=== PATIENT | male | born 1990 | race Asian ===

== ENCOUNTER 2017-01-10 09:27 | Day surgery (SDC) | payer OTHER ==
[2017-01-09 17:22] VITALS: BMI 32.4
[~2017-01-10] VITALS: Ht 167.6 cm; Wt 89.0 kg
[2017-01-10] VITALS (12 sets, daily range): BP systolic 96–122; BP diastolic 37–68; PULSE 64–78; RESP 11–22; Ht 167.6 cm; Wt 89.0 kg
[~2017-01-10 09:27] MED LIST: CEFAZOLIN 2 GM/50 ML (PMX) 50 ML IVPB SCH; SOD CHLORIDE 0.9% 1,000 ML IV SCH
[2017-01-10] MEDS ORDERED: AMOX1TAB10 PO (10:26)
[2017-01-10] MEDS ORDERED: BUPIVACAINE 0.25% (MPF) 30 ML INJ ONE (11:16)
[2017-01-10] MEDS ORDERED: FENTAnyl 50 MCG/ML VIAL ONE (11:25)
[2017-01-10] MEDS ORDERED: MIDAZOLAM 1 MG/ML 2 ML INJ ONE (11:25)
[2017-01-10] MEDS ORDERED: PROPOFOL 20 ML ONE (11:25)
[2017-01-10] MEDS ORDERED: SUCCINYLCHOLINE CHLORIDE 100 MG/5 ML SYG IV ONE (11:25)
[2017-01-10] MEDS ORDERED: ROCURONIUM 50 MG INJ ONE (11:25)
[2017-01-10] MEDS ORDERED: BUPIVACAINE 0.25% (MPF) 30 ML INJ INJ ONE (12:11)
[2017-01-10] MEDS ORDERED: GLYCOPYRROLATE 0.4 MG INJ ONE (12:23)
[2017-01-10] MEDS ORDERED: NEOSTIGMINE 3 MG/3 ML SYRINGE ONE (12:23)
[2017-01-10] MEDS ORDERED: CEFAZOLIN 1 GM INJ ONE (12:23)
[2017-01-10] MEDS ORDERED: ONDANSETRON 4 MG INJ ONE (12:23)
[2017-01-10] MEDS ORDERED: KETOROLAC 30 MG INJ ONE (12:23)
[2017-01-10] MEDS ORDERED: METOCLOPRAMIDE 10 MG INJ ONE (12:23)
[2017-01-10] MEDS ORDERED: DEXAMETHASONE 4 MG/ML 1 ML INJ ONE (12:23)
[2017-01-10] MEDS ORDERED: ONDANSETRON 4 MG INJ IV PRN (13:00)
[2017-01-10] MEDS ORDERED: DIPHENHYDRAMINE 50 MG INJ IV PRN (13:00)
[2017-01-10] MEDS ORDERED: LABETALOL HCL 20MG INJ IV PRN (13:00)
[2017-01-10] MEDS ORDERED: OXYCODONE/ACETAMINOPHEN (5/325) TAB PO PRN ×2 (13:00)
[2017-01-10] MEDS ORDERED: HYDROmorphONE (0.2 MG/ML) 10ML SYG IV PRN ×3 (13:00)
[2017-01-10] MEDS ORDERED: EPHEDrine SULFATE 50 MG/5 ML SYG IV PRN (13:00)
[2017-01-10] MEDS ORDERED: METOCLOPRAMIDE 10 MG INJ IV PRN (13:00)
[2017-01-10] MEDS ORDERED: MEPERIDINE 25 MG INJ IV PRN (13:00)
[2017-01-10] MEDS ORDERED: FENTAnyl 50 MCG/ML VIAL IV PRN ×2 (13:00)
[2017-01-10] MEDS ORDERED: morphine (1 MG/ML) 10ML SYRINGE IV PRN ×3 (13:00)
[2017-01-10] MEDS ORDERED: HYDROCODONE/APAP (5/325) TAB PO ONE (13:00)
--- NOTE | 2017-01-10 13:00 | OPR ---
Date/Time of Note Date/Time of Note DATE: 01/10/17 TIME: 12:57 Operative Report Procedure Date: Jan 10, 2017 Preoperative Diagnosis recurrent pilonidal cyst Postoperative Diagnosis same Operation Performed 1. recurrent pilonidal cystectomy 14 cm incision and 14x6 cm pilonidal cyst 2. localized adjacent tissue transfer with the use of skin flaps 84 sq cm defect 3. therapeutic injection of subcutaneous marcaine Specimens large recurrent pilonidal cyst Indications This is a 26-year-old male with recurrent pilonidal cyst. He has had multiple recurrent infections after prior pilonidal cystectomy. Patient requires surgical excision of his recurrent pilonidal cyst. Risks alternatives benefits and percent were discussed the patient. Patient expresses understanding and consents to the operation. Procedure Description Patient is taken to the OR and prepped and draped in usual sterile fashion surgical timeout was performed IV antibiotics given. Elliptical incision is made around the prior pilonidal cyst incision including the additional panel cysts in the lower midline area. Dissection cautery was carried down all the way to the bone. The pilonidal cyst is excised en bloc. A very large defect was created from this recurrent pilonidal cystectomy. Skin flaps are created on bilateral sides. Localized adjacent tissue transfer with these of skin flaps was performed and a multilayer closure with interrupted 2-0 Vicryl and the skin is closed with interrupted 2-0 nylon. Therapeutic subcutaneous Marcaine is injected throughout the incision site. Dry dressings were applied. Jen SOSA Jan 10, 2017 13:00
[2017-01-10] MEDS: FENTAnyl 50 MCG/ML VIAL IV PRN ×2 (13:03→13:16)
== END 2017-01-10 14:55 | disposition home or self-care (01) ==
LOC: SDS 09:27 → EDSTATUS 15:30
PROVIDERS: ATTEND Surgery
DX: L05.91 Pilonidal cyst without abscess (principal)
CPT/HCPCS: 10081; 88304; J0690; J1100; J1885; J2175; J2250; J2405; J2710; J2765; J3010; J7999; Z7512; Z7610